=== PATIENT | female | born 2000 | race Two or more races ===

== ENCOUNTER 2021-06-08 08:59 | Emergency (ER) | payer MEDICAID, OTHER ==
[~2021-06-08] VITALS: Ht 162.6 cm; Wt 49.0 kg
[2021-06-08] MEDS ORDERED: KETOROLAC TROMETH 60MG/2ML VIAL IM ONE (10:00)
[2021-06-08] MEDS ORDERED: CEPH500C PO (11:00)
[2021-06-08 11:24] VITALS: BP 146/99
== END 2021-06-08 12:35 | disposition home or self-care (01) ==
LOC: ER 08:59
DX: S01.512A Laceration without foreign body of oral cavity, initial encounter (principal); V43.52XA Car driver injured in collision with other type car in traffic accident, initial encounter; Y93.89 Activity, other specified; Y92.488 Other paved roadways as the place of occurrence of the external cause; Y99.8 Other external cause status
CPT/HCPCS: 41250; 96372; 99284; J1885

== ENCOUNTER 2021-06-19 09:36 | Emergency (ER) | payer MEDICAID, OTHER ==
[~2021-06-19] VITALS: Ht 162.6 cm; Wt 48.1 kg
[~2021-06-19 09:36] MED LIST: CEPH500C PO
[2021-06-19 09:47] VITALS: BP 142/90
== END 2021-06-19 09:58 | disposition home or self-care (01) ==
LOC: ER 09:36
DX: Z48.02 Encounter for removal of sutures (principal); S01.511D Laceration without foreign body of lip, subsequent encounter; X58.XXXD Exposure to other specified factors, subsequent encounter

== ENCOUNTER 2023-01-15 16:05 | Emergency (ER) | payer SELFPAY ==
[~2023-01-15] VITALS: Ht 160 cm; Wt 54.5 kg
[2023-01-15 16:17] VITALS: BP 156/98; PULSE 115; RESP 18; TEMP 98; O2SAT 98
[2023-01-15] MEDS ORDERED: IBUP-1454 PO (16:58)
== END 2023-01-15 17:12 | disposition home or self-care (01) ==
LOC: ER 16:05
DX: S62.644A Nondisplaced fracture of proximal phalanx of right ring finger, initial encounter for closed fracture (principal); W23.0XXA Caught, crushed, jammed, or pinched between moving objects, initial encounter; Y93.89 Activity, other specified; Y92.89 Other specified places as the place of occurrence of the external cause; Y99.8 Other external cause status
CPT/HCPCS: 29130; 73140